=== PATIENT | male | born 1995 | race Caucasian/White ===

== ENCOUNTER 2022-10-09 10:51 | Outpatient (CLI) | payer MEDICAID | END 2022-10-09 23:14 | disposition left against medical advice (07) | LOC: EMS 10:51 | DX: R25.1 Tremor, unspecified (principal); R44.3 Hallucinations, unspecified ==

== ENCOUNTER 2022-10-10 09:53 | Outpatient (CLI) | payer MEDICAID | END 2022-10-10 23:59 | disposition critical access hospital (66) | LOC: EMS 09:53 | DX: R44.1 Visual hallucinations (principal); R44.0 Auditory hallucinations; R45.1 Restlessness and agitation | CPT/HCPCS: A0425; A0429; A0999 ==

== ENCOUNTER 2022-10-10 10:33 | Emergency (ER) | payer MEDICAID ==
[2022-10-10] MEDS ORDERED: QUEtiapine 25 MG TABLET PO STA ×2 (10:42→12:19)
[2022-10-10] MEDS ORDERED: OLANZapine ODT 5 MG TABLET TL ONE (10:42)
[2022-10-10] MEDS ORDERED: LORazepam 1 MG TABLET PO STA (10:42)
[2022-10-10 10:58] LABS: BASOPHILS # (AUTO) 0.1 10^3/uL (0.0-0.1); BASOPHILS % (AUTO) 0.8 %; EOSINOPHILS # (AUTO) 0.1 10^3/uL (0.0-0.7); EOSINOPHILS % (AUTO) 0.6 %; HCT - HEMATOCRIT 41.8 % (42.0-52.0); HGB - HEMOGLOBIN 14.2 g/dL (14.0-18.0); LYMPHOCYTES # (AUTO) 1.9 10^3/uL (1.5-3.5); LYMPHOCYTES % (AUTO) 12.8 %; MEAN CORPUSCULAR HEMOGLOBIN 31.6 pg (27.0-31.0); MEAN CORPUSCULAR VOLUME 92.9 fL (80.0-94.0); MEAN PLATELET VOLUME 9.1 fL (7.4-11.4); MONOCYTES # (AUTO) 1.6 10^3/uL (0.0-1.0); MONOCYTES % (AUTO) 10.4 %; NEUTROPHILS # (AUTO) 11.2 10^3/uL (1.5-6.6); NEUTROPHILS % (AUTO) 75.1 %; PLT - PLATELET COUNT 383 10^3/uL (130-450); RED CELL DISTRIBUTION WIDTH 13.3 % (12.0-15.0)
[2022-10-10 11:02] LABS: SLIDE REVIEW? Indicated
[2022-10-10 11:08] LABS: ALBUMIN 4.9 g/dL (3.2-5.5); ALBUMIN/GLOBULIN RATIO 1.5 (1.0-2.2); ALKALINE PHOSPHATASE 51 IU/L (42-121); ALT ALANINE AMINOTRANSFERASE 179 IU/L (10-60); AST ASPARTATE AMINOTRANSFERASE 104 IU/L (10-42); BILIRUBIN,TOTAL 1.2 mg/dL (0.2-1.0); BUN - BLOOD UREA NITROGEN 13 mg/dL (6-20); CALCIUM 9.6 mg/dL (8.5-10.3); CARBON DIOXIDE - CO2 25 mmol/L (21-32); CHLORIDE 100 mmol/L (101-111); CREATININE 0.9 mg/dL (0.6-1.2); ETOH - ETHANOL < 5.0 mg/dL; GFR - MDRD 100 (>89); GLUCOSE 98 mg/dL (70-100); LIPASE 34 U/L (22-51); POTASSIUM 3.9 mmol/L (3.5-5.0); SODIUM 138 mmol/L (135-145); TOTAL PROTEIN 8.1 g/dL (6.7-8.2)
[2022-10-10] MEDS ORDERED: diazePAM INJ 5 MG/ML SYRINGE IM STA (12:19)
[2022-10-10] MEDS ORDERED: HALOPERIDOL 5 MG/ML VIAL IM STA (12:20)
--- NOTE | 2022-10-10 12:26 | ED Physician Documentation ---
Restraint [id number] - Immediate Situation Face to Face Evaluation Date: 10/10/22 Face to Face Evaluation Time: 12:05 Restraint Classification: Violent, seclusion Restraint Type: Seclusion - Patient's Reaction & Behaviors Safety: Physically safe Verbal: Asking for information Harm: Potential harm to self, Potential harm to others Physical: Aggressive behavior, Beating on the door/wall - Behavioral Condition Attitude: Guarded Behavior: Agitated Orientation: Person Mood: Labile, Anxious, Other (Agitated) Behavioral Condition Comments: Agitated, relating hallucinations of war and invasion into his room, not responding to Pharmacological interventions in ED. - Evaluation Review of Systems: Unable To obtain from patient Pertinent History/Illicit Drugs/Medications/Results: See ED note - Plan Need to Continue or Terminate Violent or Chemical Restraint: We will continue to monitor patient's behavior and response and change plan as necessary.
[2022-10-10] MEDS ORDERED: KETAMINE 500 MG/10 ML VIAL IM STA (12:31)
--- NOTE | 2022-10-10 13:37 | ED Physician Documentation ---
Restraint [id number]-[id number] - Immediate Situation Face to Face Evaluation Date: 10/10/22 Face to Face Evaluation Time: 12:18 Restraint Classification: Violent, chemical Restraint Type: Chemical - Patient's Reaction & Behaviors Safety: Physically unsafe Verbal: Screaming/Yelling Harm: Potential harm to self Physical: Aggressive behavior, Spitting, Punching, Kicking, Beating on the door/wall - Behavioral Condition Attitude: Other (Aggressive) Behavior: Uncooperative, Agitated Orientation: Person Mood: Anxious, Other (Agitated) - Evaluation Review of Systems: Unable To obtain from patient Pertinent History/Illicit Drugs/Medications/Results: See ED note - Plan Need to Continue or Terminate Violent or Chemical Restraint: We will continue to monitor patient's behavior directly and via room camera and will adjust intervention as necessary.
[2022-10-10 16:12] LABS: MUDS CUTOFF CONCENTRATIONS CUTOFF CONC BELOW:
[2022-10-10 16:30] LABS: THC CANNABINOID SCREEN, URINE POSITIVE (NEGATIVE)
[2022-10-10 16:31] LABS: AMPHETAMINE SCREEN,URINE NEGATIVE (NEGATIVE); BARBITURATE SCREEN,UR NEGATIVE (NEGATIVE); BENZODIAZEPINES SCREEN, URINE POSITIVE (NEGATIVE); COCAINE SCREEN URINE NEGATIVE (NEGATIVE); METHADONE SCREEN, URINE NEGATIVE (NEGATIVE); METHAMPHETAMINES SCREEN, URINE NEGATIVE (NEGATIVE); OPIATE SCREEN, URINE NEGATIVE (NEGATIVE); OXYCODONE SCREEN, URINE NEGATIVE (NEGATIVE); PROPOXYPHENE SCREEN, URINE NEGATIVE (NEGATIVE); TRICYCLIC ANTIDEPRESSANT,URINE POSITIVE (NEGATIVE)
--- NOTE | 2022-10-10 16:33 | ED Physician Documentation ---
Restraint [id number] - Immediate Situation Face to Face Evaluation Date: 10/10/22 Face to Face Evaluation Time: 16:05 Restraint Classification: Violent, seclusion Restraint Type: Seclusion - Patient's Reaction & Behaviors Safety: Physically unsafe, Unable to Follow Commands Harm: Potential harm to self, Potential harm to others Physical: Aggressive behavior, Fighting restraints Other: Resting quietly (After restraint) - Behavioral Condition Attitude: Guarded Behavior: Cooperative (AndSometimes, the patient is full until can very suddenly react to internal stimuli violently.), Agitated Orientation: Person Mood: Labile - Evaluation Review of Systems: Unable To obtain from patient Pertinent History/Illicit Drugs/Medications/Results: See ED note - Plan Need to Continue or Terminate Violent or Chemical Restraint: We will continue to monitor the patient's symptoms and make adjustments based on the patient's current condition.
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
[2022-10-10] MEDS: OLANZapine ODT 5 MG TABLET TL SCH (20:55)
[2022-10-10] MEDS ORDERED: QUEtiapine 100 MG TABLET PO SCH (21:00)
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
--- NOTE | 2022-10-11 00:42 | ED Physician Documentation ---
ED Addendum - Addendum Addendum: Patient was signed out to me at shift change. Patient was reportedly agitated earlier requiring the seclusion room and chemical restraints.He was seen by the DCR. There are no beds available tonight.Facilities would require him to be out of seclusion to consider him for placement. 10/11/22 00:41 Patient was taken out of of the seclusion room and moved into bed 3. He is currently cooperative.Given blankets and lights dimmed down. 10/11/22 06:50 No events since Patient was taken out of the seclusion room. Patient will be signed out at shift change. Plan is to reach back out to DCR for reevaluation.
--- NOTE | 2022-10-11 07:17 | ED Physician Documentation ---
ED Addendum - Addendum Addendum: 10/11/22 07:16 Patient received a signout from outgoing physician, please see their do cumentation for further detail. In short patient 27-year-old male known history of schizophrenia presenting to the emergency department with acute psychosis. Initial labs reviewed, patient has leukocytosis with bandemia, mild elevation in LFTs, T. bili, UDS positive for tricyclics, cannabinoids, Benzodiazepines.Chart review demonstrates that he frequently presents with a leukocytosis as well as a mild elevation in LFTs and T. bili. Required multiple doses for chemical calming on arrival and during his initial stay in the emergency department. Has been out of seclusion for the last 6 hours. Has not needed additional medications to those prescribed regularly for him which include olanzapine 10 mg ODT twice daily and Seroquel nightly. EKG performed 0908 hrs.: Sinus rhythm with rate 72 bpm. Normal axis. Normal MN, QRS, QTc intervals. No ST segment elevations or T wave inversions. Disagree with interpretation of short MN interval, clear motion artifact in leads I and III are likely causing this fictitious finding however normal MN intervals are noted in 2, aVF, V1 through V6. 10/11/22 07:17 10/11/22 09:17 10/11/22 15:09
[2022-10-11] MEDS: OLANZapine ODT 5 MG TABLET TL SCH (08:29)
[2022-10-11 15:42] VITALS: BP 126/90
== END 2022-10-11 15:59 | disposition short-term general hospital (02) ==
LOC: EDUNIT# → ED 10:33
DX: F23 Brief psychotic disorder (principal); Z91.148 Patient's other noncompliance with medication regimen for other reason; Z20.822 Contact with and (suspected) exposure to COVID-19
CPT/HCPCS: 36415; 80053; 80306; 80320; 83690; 84443; 85025; 87635; 93005; 96372; 99284; 99285; A9270; J8499

== ENCOUNTER 2023-07-06 11:25 | Emergency (ER) | payer MEDICAID ==
[2023-07-06] MEDS ORDERED: DROPERIDOL 5 MG/2 ML VIAL IM STA (13:08)
--- NOTE | 2023-07-06 13:10 | ED Physician Documentation ---
History of Present Illness - Stated complaint Stated Complaint: MHE - Chief complaint Chief Complaint: MHE - Additonal information Additional information: 27-year-old male presents to the emergency department via EMS after he asked his mom to call 911 on him for worsening visual and audible hallucinations. Patient reports that he has been diagnosed with paranoid schizophrenia disorder. Patient reports that he has been off his psych meds for about a week now he says he is currently couch surfing on his mom's couch he just got his medications refilled today took all of his routine psych medications but feels like his paranoia and psychosis has gotten significantly worse despite taking his psych meds. Patient says that he is having audible hallucinations and hearing voices in his head that they are doing bad things to his family and seeing things that are not there. Patient denies any suicidal homicidal thoughts he says that he does not hear any voices that are telling him or others to hurt himself or his family. PD PAST MEDICAL HISTORY - Past Medical History Psych: Depression - Past Surgical History Past Surgical History: No - Present Medications Home Medications: Ambulatory Orders Medication Instructions Recorded Confirmed Benztropine Mesylate 1 mg PO BID 10/10/22 07/06/23 Buspirone HCl 10 mg PO TID 10/10/22 07/06/23 OLANZapine [Zyprexa] 7.5 mg PO DAILY 10/10/22 07/06/23 Sertraline [Zoloft] 50 mg PO DAILY 10/10/22 07/06/23 Trazodone HCl 150 mg PO HS 10/10/22 07/06/23 - Allergies Allergies/Adverse Reactions: Allergies Allergy/AdvReac Type Severity Reaction Status Date / Time No Known Drug Allergies Allergy Verified 07/06/23 11:45 - Social History Does the pt smoke?: No Smoking Status: Never smoker Does the pt drink ETOH?: No Does the pt have substance abuse?: No - Immunizations Immunizations are current?: No Immunizations: TDAP >10years/unknown - POLST Patient has POLST: No PD ED PE NORMAL - Vitals Vital signs reviewed: Yes - General General: Alert and oriented X 3, No acute distress, Well developed/nourished - HEENT HEENT: Atraumatic, PERRL, EOMI, Ears normal, Moist mucous membranes - Neck Neck: No bony TTP - Cardiac Cardiac: RRR, No murmur, No gallop - Respiratory Respiratory: No respiratory distress, Clear bilaterally - Abdomen Abdomen: Normal bowel sounds, Soft, Non tender - Extremities Extremities: No deformity, Normal ROM s pain, No edema - Neuro Neuro: Alert and oriented X 3, digital music instructor 2-12 intact, No motor deficit, No sensory deficit, Normal speech Eye Opening: Spontaneous Motor: Obeys Commands Verbal: Oriented GCS Score: 15 - Psych Psych: Normal mood PD ED PE EXPANDED - Psych Psych: Withdrawn, Poor eye contact, Anxious, Flight of ideas, Auditory hallucinations, Visual hallucinations, Delusions, Other (Pt denies any suicidal homicidal ideation.) Results - Vitals Vitals: Vital Signs - 24 hr 07/06/23 07/06/23 07/06/23 11:36 14:50 19:40 Temperature 36.4 C L 36.9 C Heart Rate 112 H 118 H 98 Respiratory 18 20 16 Rate Blood Pressure 145/98 H 143/99 H 139/102 H O2 Saturation 98 96 95 Oxygen O2 Source Room air - Labs Labs: Laboratory Tests 07/06/23 07/06/23 07/06/23 11:49 13:13 13:13 WBC 9.7 RBC 4.54 L Hgb 13.6 L Hct 40.8 L MCV 89.9 MCH 30.0 MCHC 33.3 RDW 13.0 Plt Count 273 MPV 9.3 Neut # (Auto) 7.7 H Lymph # (Auto) 1.3 L [place] # (Auto) 0.6 Eos # (Auto) 0.1 Baso # (Auto) 0.1 Absolute Nucleated RBC 0.00 Nucleated RBC % 0.0 Sodium 136 Potassium 3.3 L Chloride 101 Carbon Dioxide 24 Anion Gap 11.0 BUN 5 L Creatinine 0.9 Estimated GFR (MDRD) 100 Glucose 152 H Calcium 10.2 Magnesium 1.5 L Total Bilirubin 0.7 AST 16 ALT 11 Alkaline Phosphatase 48 Total Protein 7.5 Albumin 4.7 Globulin 2.8 Albumin/Globulin Ratio 1.7 TSH 2.32 Urine Color YELLOW Urine Clarity CLEAR Urine pH 7.0 Ur Specific [place] <=1.005 Urine Protein NEGATIVE Urine Glucose (UA) NEGATIVE Urine Ketones NEGATIVE Urine Occult Blood NEGATIVE Urine Nitrite NEGATIVE Urine Bilirubin NEGATIVE Urine Urobilinogen 0.2 (NORMAL) Ur Leukocyte Esterase NEGATIVE Ur Microscopic Review NOT INDICATED Urine Culture Comments NOT INDICATED Nasal Influenza B PCR Nasal Influenza A PCR Nasal RSV (PCR) Nasal SARS-CoV-2 (PCR) Urine Opiates Screen NEGATIVE Ur Buprenorphine Scrn NEGATIVE Ur Oxycodone Screen NEGATIVE Urine Methadone Screen NEGATIVE Ur Barbiturates Screen NEGATIVE Ur Tricyclics Screen NEGATIVE Ur Phencyclidine Scrn NEGATIVE Ur Amphetamine Screen NEGATIVE U Methamphetamines Scrn NEGATIVE U Benzodiazepines Scrn NEGATIVE Urine Cocaine Screen NEGATIVE U Cannabinoids Screen POSITIVE H Ur Drug Screen Comment CUTOFF CONC BELOW: 07/06/23 15:04 WBC RBC Hgb Hct MCV MCH MCHC RDW Plt Count MPV Neut # (Auto) Lymph # (Auto) [place] # (Auto) Eos # (Auto) Baso # (Auto) Absolute Nucleated RBC Nucleated RBC % Sodium Potassium Chloride Carbon Dioxide Anion Gap BUN Creatinine Estimated GFR (MDRD) Glucose Calcium Magnesium Total Bilirubin AST ALT Alkaline Phosphatase Total Protein Albumin Globulin Albumin/Globulin Ratio TSH Urine Color Urine Clarity Urine pH Ur Specific [place] Urine Protein Urine Glucose (UA) Urine Ketones Urine Occult Blood Urine Nitrite Urine Bilirubin Urine Urobilinogen Ur Leukocyte Esterase Ur Microscopic Review Urine Culture Comments Nasal Influenza B PCR NOT DETECTED Nasal Influenza A PCR NOT DETECTED Nasal RSV (PCR) NOT DETECTED Nasal SARS-CoV-2 (PCR) NOT DETECTED Urine Opiates Screen Ur Buprenorphine Scrn Ur Oxycodone Screen Urine Methadone Screen Ur Barbiturates Screen Ur Tricyclics Screen Ur Phencyclidine Scrn Ur Amphetamine Screen U Methamphetamines Scrn U Benzodiazepines Scrn Urine Cocaine Screen U Cannabinoids Screen Ur Drug Screen Comment PD Medical Decision Making - ED course ED course: 27-year-old male presents the emergency department for acute psychosis. Labs were complete he appears to have mild normocytic anemia, hemoglobin 13.6, hematocrit 40.8, RBCs 4.54. Lymphocytes 1.3. Patient has mild hypokalemia, potassium 3.3 mild hypomagnesemia, magnesium 1.5. Potassium and magnesium was replaced in the emergency department. Blood glucose slightly elevated at 152. Urine did not have any leukocytes or nitrites no concerns for UTI. Respiratory panel is negative. Urine tox screen was also completed and only tested positive for cannabinoids. Patient does appear to have good insight into his auditory and visual hallucinations. Patient says that he has not been taking his medications routinely over the last week or so when I ask him what the cause of this for he says he does not know. When asked the patient what medications he takes for his paranoid schizophrenia he also says that he does not remember. Patient lives at home with his mother who he told to call 911 today because he was feeling more on edge than normal and feeling like he was on the verge of a psychotic break. Throughout entire ER visit he continues to decline any suicidal homicidal ideation and declines any voices in his head telling him to hurt himself or his family. I had a lengthy conversation with the patient's mother Who says that she has been worried for about a week now that the patient was mentally declining. She says that she has been working a lot more than normal lately and this is what tends to trigger patient's psychotic events or episodes. She said that he did not have any aggression towards her but was concerned for his overall safety and mental health. She says that they did not run out of medications in the last week but she has been noticing that he has not been taking them routinely and she is worried that he has been pretending to take his medications and not actually taking them although she cannot confirm this is true or not. She says that she is grateful to have him being seen in the emergency department for further evaluation in regards to his psychosis. 1440: Patient attempted to elope, patient reports that he is hearing voices that people are trying to kill his family he attempted to redirect he offered food and drinks, he was placed with a one-to-one despite multiple efforts to keep patient here in the emergency department he was adamant that he needed to leave to save his family because of his auditory hallucinations. Patient says I know that I am hearing voices I know that I am seeing things that are not there but I have to leave to save my family. Patient was ultimately placed in a 4-point restraints we attempted to give him 2.5 mg IM droperidol which did seem to help some but not enough to keep patient calm and cooperative. 1530: Social work has evaluated the patient patient is agreeable to go to mental health facility for hospitalization for his worsening psychosis that he is experiencing right now. 1850: I was able to confirm patient's medications with his mother and order his routine at bedtime medications. Patient continues to endorse an auditory and visual hallucinations and says that he is not willing to go but he is worried about his paranoid psychosis that he might need to leave the hospital and says that he understands this does not make sense. After patient gets his routine nighttime medications have spoken with the RN we will start to work on transitioning patient off of restraints to see how he is able to do them to see if he is able to follow commands appropriately without attempting to elope and cause harm to himself or others. Per patient's mother Aruna his home medication list as below. Trazodone 100 to 200 mg at bedtime Risperidone 4 mg at bedtime Zyprexa 10 mg at bedtime [place] 300 mg twice daily. . Report given to Dr. Romo due to change of shift. Departure - Departure Forms: PCP List
[2023-07-06 13:19] LABS: BASOPHILS # (AUTO) 0.1 10^3/uL (0.0-0.1); BASOPHILS % (AUTO) 0.5 %; EOSINOPHILS # (AUTO) 0.1 10^3/uL (0.0-0.7); EOSINOPHILS % (AUTO) 0.5 %; HCT - HEMATOCRIT 40.8 % (42.0-52.0); HGB - HEMOGLOBIN 13.6 g/dL (14.0-18.0); LYMPHOCYTES # (AUTO) 1.3 10^3/uL (1.5-3.5); LYMPHOCYTES % (AUTO) 13.3 %; MEAN CORPUSCULAR HGB CONC 33.3 g/dL (32.0-36.0); MEAN CORPUSCULAR VOLUME 89.9 fL (80.0-94.0); MEAN PLATELET VOLUME 9.3 fL (7.4-11.4); MONOCYTES # (AUTO) 0.6 10^3/uL (0.0-1.0); MONOCYTES % (AUTO) 6.2 %; NEUTROPHILS # (AUTO) 7.7 10^3/uL (1.5-6.6); NEUTROPHILS % (AUTO) 79.3 %; PLT - PLATELET COUNT 273 10^3/uL (130-450); RED BLOOD COUNT 4.54 10^6/uL (4.70-6.10); WHITE BLOOD COUNT 9.7 x10^3/uL (4.8-10.8)
[2023-07-06 13:47] LABS: THYROID STIMULATING HORMONE 2.32 uIU/mL (0.34-5.60)
[2023-07-06 13:56] LABS: BILIRUBIN,URINE NEGATIVE (NEGATIVE); GLUCOSE, URINE (UA) NEGATIVE (NEGATIVE); KETONES,URINE (UA) NEGATIVE (NEGATIVE); LEUKOCYTE ESTERASE, URINE NEGATIVE (NEGATIVE); NITRITE,URINE NEGATIVE (NEGATIVE); OCCULT BLOOD,URINE NEGATIVE (NEGATIVE); PROTEIN,URINE NEGATIVE (NEGATIVE); UROBILINOGEN,URINE 0.2 (NORMAL) E.U./dL (NORMAL)
[2023-07-06 13:57] LABS: CLARITY,URINE CLEAR (CLEAR)
[2023-07-06 14:13] LABS: AMPHETAMINE SCREEN,URINE NEGATIVE (NEGATIVE); BARBITURATE SCREEN,UR NEGATIVE (NEGATIVE); BENZODIAZEPINES SCREEN, URINE NEGATIVE (NEGATIVE); BUPRENORPHINE SCREEN, URINE NEGATIVE (NEGATIVE); COCAINE SCREEN URINE NEGATIVE (NEGATIVE); METHADONE SCREEN, URINE NEGATIVE (NEGATIVE); METHAMPHETAMINES SCREEN, URINE NEGATIVE (NEGATIVE); OPIATE SCREEN, URINE NEGATIVE (NEGATIVE); OXYCODONE SCREEN, URINE NEGATIVE (NEGATIVE); THC CANNABINOID SCREEN, URINE POSITIVE (NEGATIVE); TRICYCLIC ANTIDEPRESSANT,URINE NEGATIVE (NEGATIVE)
[2023-07-06 15:35] LABS: ALBUMIN 4.7 g/dL (3.2-5.5); ALBUMIN/GLOBULIN RATIO 1.7 (1.0-2.2); BILIRUBIN,TOTAL 0.7 mg/dL (0.2-1.0); CALCIUM 10.2 mg/dL (8.5-10.3); CREATININE 0.9 mg/dL (0.6-1.3); MAGNESIUM 1.5 mg/dL (1.7-2.3); POTASSIUM 3.3 mmol/L (3.5-4.5); TOTAL PROTEIN 7.5 g/dL (6.4-8.9)
[2023-07-06 16:10] LABS: INFLUENZA A- RESP PCR PANEL NOT DETECTED; SARS-CoV-2 -RESP PCR PANEL NOT DETECTED
[2023-07-06 16:11] LABS: INFLUENZA B - RESP PCR PANEL NOT DETECTED; RSV- RESP PCR PANEL NOT DETECTED
--- NOTE | 2023-07-06 17:42 | ED Physician Documentation ---
Restraint [id number] - Immediate Situation Face to Face Evaluation Date: 07/06/23 Face to Face Evaluation Time: 15:00 Restraint Classification: Violent, physical - Patient's Reaction & Behaviors Safety: Physically safe, Compliant Harm: Potential harm to self Other: Resting quietly - Behavioral Condition Attitude: Guarded Behavior: Withdrawn Orientation: Person, Place, Time, Situation Mood: Labile, Anxious - Evaluation Pertinent History/Illicit Drugs/Medications/Results: See note - Plan Need to Initiate/Renew Violent or Chemical Restraint: Continue restraints
[2023-07-06] MEDS ORDERED: MAGNESIUM OXIDE 400 MG TABLET PO STA (17:54)
[2023-07-06] MEDS ORDERED: POTASSIUM CHLORIDE 20 MEQ TABLET PO STA (17:54)
[2023-07-06] MEDS ORDERED: OLANZapine ODT 5 MG TABLET TL STA (19:28)
[2023-07-06] MEDS ORDERED: LITHIUM 150 MG CAPSULE PO STA (19:30)
--- NOTE | 2023-07-06 19:49 | ED Physician Documentation ---
Restraint [id number] - Immediate Situation Face to Face Evaluation Date: 07/06/23 Face to Face Evaluation Time: 19:48 Restraint Classification: Violent, physical - Patient's Reaction & Behaviors Safety: Physically safe Harm: Potential harm to self, Potential harm to others Other: Resting quietly - Behavioral Condition Attitude: Guarded Behavior: Withdrawn Orientation: Person, Place, Situation Mood: Depressed, Anxious - Evaluation Pertinent History/Illicit Drugs/Medications/Results: See note - Plan Need to Initiate/Renew Violent or Chemical Restraint: see note
[2023-07-06] MEDS ORDERED: risperiDONE 1 MG TABLET PO SCH (21:00)
[2023-07-06] MEDS ORDERED: traZODone 50 MG TABLET PO STA (22:23)
--- NOTE | 2023-07-06 23:07 | ED Physician Documentation ---
ED Addendum - Addendum Addendum: 07/06/23 23:04 Patient declined at facilities for voluntary secondary to elopement. DCR will be dispatched. Patient signed out to the oncoming emergency department physician.
[2023-07-06 23:20] LABS: LITHIUM 0.63 mmol/L
--- NOTE | 2023-07-07 00:07 | ED Physician Documentation ---
ED Addendum - Addendum Addendum: Patient signed out to me at shift change. Awaiting evaluation by DCR. 07/07/23 00:07 DCR [facility] has evaluated the patient and will look for placement. Patient still appears restless and agitated, talking to himself. Dose of Ativan ordered. Patient still makes attempts to elope by rushing towards exit door when allowed to ambulate to bathroom. Will continue restraints. 07/07/23 03:31Patient has been accepted to [facility] in [place] 07/07/23 07:16 Pt signed out to Dr. Mccoy at shift change. Departure - Departure Disposition: [facility]Unit DC/Xfer Clinical Impression: Hallucinations, Psychosis, Paranoid schizophrenia, At risk for elopement Condition: Good Forms: PCP List
[2023-07-07] MEDS ORDERED: LORazepam 1 MG TABLET PO STA ×2 (02:13→07:45)
--- NOTE | 2023-07-07 03:04 | ED Physician Documentation ---
Restraint [id number] - Immediate Situation Face to Face Evaluation Date: 07/07/23 Face to Face Evaluation Time: 03:03 Restraint Classification: Violent, physical hold - Behavioral Condition Attitude: Indifferent Behavior: Uncooperative Orientation: Person, Place, Time, Situation Mood: Labile, Anxious - Evaluation Pertinent History/Illicit Drugs/Medications/Results: See note
[2023-07-07] MEDS ORDERED: OLANZapine ODT 5 MG TABLET TL STA (07:45)
--- NOTE | 2023-07-07 07:58 | ED Physician Documentation ---
ED Addendum - Addendum Addendum: 07/07/23 07:56 At change of shift, verbal report was given to me. Nursing stated the restraint series had been renewed at 0 650. Reevaluating on not sure it had been renewed per se. Nursing states the patient was directable when he needed to go to the bathroom and back. He made a physical step towards the door of the department but stopped with just the physical presence of the nurse being between the patient and the door. He then went back into bed and has just a leg restraint on to keep from elopement. It does look like he still needs this level. [facility] is expected within the next hour to hour and a half.
--- NOTE | 2023-07-07 08:01 | ED Physician Documentation ---
Restraint [id number] - Immediate Situation Face to Face Evaluation Date: 07/07/23 Face to Face Evaluation Time: 07:58 Restraint Classification: Violent, physical - Patient's Reaction & Behaviors Safety: Non-compliant Other: Disruption of therapy (he made gesture toward exit door when up for bathroom. Had made elopement attempts previously in ED stay per report. He is on involuntary hold for safety to self, so want to minimize elopement potential. ) - Behavioral Condition Attitude: Guarded Behavior: Cooperative, Withdrawn Orientation: Person, Place, Situation Mood: Other (flat) - Evaluation Current Medical Condition Relating to Need for Restraint: schizoaffective exacerbation with poor self care and potential for harm. Pertinent History/Illicit Drugs/Medications/Results: See note - Plan Need to Initiate/Renew Violent or Chemical Restraint: Bed alarm is on and leg restraint is on to hinder elopement.
[2023-07-07 08:19] VITALS: BP 137/81; O2SAT 97
== END 2023-07-07 09:05 ==
LOC: EDUNIT# → ED 11:25
DX: F25.9 Schizoaffective disorder, unspecified (principal); F32.A Depression, unspecified; F41.9 Anxiety disorder, unspecified; F29 Unspecified psychosis not due to a substance or known physiological condition; Z79.899 Other long term (current) drug therapy
CPT/HCPCS: 36415; 80053; 80178; 80306; 81003; 83735; 84443; 85025; 87637; 96372; 99285; A9270; J8499; 81001; 87086

== ENCOUNTER 2023-10-16 08:15 | Outpatient (CLI) | payer MEDICAID ==
[2023-10-16 14:32] LABS: BASOPHILS # (AUTO) 0.1 10^3/uL (0.0-0.1); BASOPHILS % (AUTO) 1.4 %; EOSINOPHILS # (AUTO) 0.3 10^3/uL (0.0-0.7); EOSINOPHILS % (AUTO) 4.4 %; HCT - HEMATOCRIT 45.7 % (42.0-52.0); HGB - HEMOGLOBIN 14.9 g/dL (14.0-18.0); LYMPHOCYTES % (AUTO) 31.5 %; MEAN CORPUSCULAR HEMOGLOBIN 29.9 pg (27.0-31.0); MEAN CORPUSCULAR HGB CONC 32.6 g/dL (32.0-36.0); MEAN CORPUSCULAR VOLUME 91.6 fL (80.0-94.0); MEAN PLATELET VOLUME 10.9 fL (7.4-11.4); MONOCYTES # (AUTO) 0.8 10^3/uL (0.0-1.0); MONOCYTES % (AUTO) 13.1 %; NEUTROPHILS # (AUTO) 3.2 10^3/uL (1.5-6.6); NEUTROPHILS % (AUTO) 49.3 %; PLT - PLATELET COUNT 332 10^3/uL (130-450); RED BLOOD COUNT 4.99 10^6/uL (4.70-6.10); RED CELL DISTRIBUTION WIDTH 13.1 % (12.0-15.0); WHITE BLOOD COUNT 6.4 x10^3/uL (4.8-10.8)
[2023-10-16 14:53] LABS: ALBUMIN 4.9 g/dL (3.2-5.5); ALBUMIN/GLOBULIN RATIO 1.7 (1.0-2.2); ALKALINE PHOSPHATASE 43 IU/L (42-121); ALT ALANINE AMINOTRANSFERASE 11 IU/L (10-60); AST ASPARTATE AMINOTRANSFERASE 14 IU/L (10-42); BILIRUBIN,TOTAL 0.6 mg/dL (0.2-1.0); BUN - BLOOD UREA NITROGEN 6 mg/dL (6-20); CALCIUM 10.3 mg/dL (8.5-10.3); CARBON DIOXIDE - CO2 29 mmol/L (21-32); CHLORIDE 100 mmol/L (101-111); CHOL/HDL RATIO 1.6 (<5.0); CHOLESTEROL 122 mg/dL; CREATININE 0.9 mg/dL (0.6-1.3); GFR - MDRD 99 (>89); GLUCOSE 89 mg/dL (74-104); HDL CHOLESTEROL 75 mg/dL; LDL CHOLESTEROL,CALCULATED 25 mg/dL; LDL/HDL RATIO 0.3 (<3.6); POTASSIUM 3.7 mmol/L (3.5-4.5); SODIUM 139 mmol/L (135-145); TOTAL PROTEIN 7.8 g/dL (6.4-8.9); TRIGLYCERIDES 110 mg/dL (48-352); VALPROIC ACID (DEPAKOTE) 101.2 ug/mL; VLDL CHOLESTEROL 22 mg/dL
[2023-10-16 21:08] LABS: ESTIMATED AVERAGE GLUCOSE 103 mg/dL (70-100); HEMOGLOBIN A1c% 5.2 % (4.27-6.07)
== END 2023-10-16 08:16 | disposition home or self-care (01) ==
LOC: LAB.S 08:15
PROVIDERS: ATTEND Nurse Practitioner Psychiatric/Mental Health
DX: F25.0 Schizoaffective disorder, bipolar type (principal)
CPT/HCPCS: 36415; 80053; 80061; 80164; 83036; 83721; 85025